=== PATIENT | female | born 1955 | race Caucasian/White ===

== ENCOUNTER → 2017-08-23 | Outpatient (CLI) | payer OTHER ==
--- NOTE | 2017-08-23 09:37 | KCIC ---
Bilateral digital diagnostic mammogram History: 62-year-old female presents with lateral right breast pain intermittently for a couple months. Comparison: Mammogram dated May 28, 2013. Findings: Breast Tissue Density B :There are scattered areas of fibroglandular density. Bilateral digital mammogram images are obtained with CAD. No suspicious masses, architectural distortion, or grouped microcalcifications are identified. An asymmetry suggested in the lateral left breast effaces with spot compression, consistent with summation artifact. Benign-appearing arterial and nonarterial calcifications are redemonstrated. Discussion: Mammographic findings were relayed to the patient. A right breast ultrasound was offered to the patient, however myself and the patient are comfortable with the benign mammographic findings. Impression: Benign findings. Recommend bilateral screening mammography in one year. Findings and recommendation were relayed to the patient by the technologist. BI-RADS Category 2: Benign. Patient information was entered into a reminder system with a target due date for the next mammogram. Electronically signed by: Mihaela Gonzales MD (08/23/2017 9:33 AM) [id number]
== END | disposition home or self-care (01) ==
LOC: KCIC MAMMO 08:49
PROVIDERS: ATTEND Nurse Practitioner Family
DX: N64.4 Mastodynia (principal)
CPT/HCPCS: G0204; 77066